=== PATIENT | male | born 1970 | race Caucasian/White ===

== ENCOUNTER 2018-01-22 19:22 | Emergency (ER) | payer OTHER ==
[~2018-01-22] VITALS: Ht 170.2 cm; Wt 123.4 kg
[~2018-01-22 19:22] MED LIST: IBUPROFEN 800800 M1 PO; IBUPROFEN 800800 MG PO; LOPERAMIDE 2 MG2 M1 PO; VICODIN HP 10-1 EAC1 PO
[2018-01-22 19:54] LABS: ABSOLUTE BASOPHILS 0.1 thou/uL (0.0-0.2); ABSOLUTE EOSINOPHILS 0.1 thou/uL (0.0-0.7); ABSOLUTE LYMPHOCYTES 1.7 thou/uL (0.8-5.3); ABSOLUTE MONOCYTES 1.1 thou/uL (0.0-1.2); ABSOLUTE NEUTROPHILS 6.2 thou/uL (1.6-8.1); BASOPHILS 1.1 %; EOSINOPHILS 1.2 %; HEMATOCRIT 48.3 % (42.0-52.0); HEMOGLOBIN 16.6 gm/dL (14.0-18.0); LYMPHOCYTES 18.3 %; MCH 29.4 pg (26.0-34.0); MCHC 34.3 g/dL (28.0-37.0); MCV 85.9 fL (80.0-100.0); MONOCYTES 12.2 %; MPV 7.9 fl. (7.2-11.1); NUCLEATED RBCS 0 /100WBC; PLATELET COUNT* 233 thou/uL (150-400); POLYS 67.2 %; RBC 5.62 mil/uL (4.50-6.00); WBC 9.3 thou/uL (4.0-11.0)
[2018-01-22 20:01] LABS: ANION GAP 14 mmol/L (7-16); BUN 27 mg/dL (7-18); CALCIUM 9.9 mg/dL (8.5-10.1); CHLORIDE 98 mmol/L (98-107); CO2 25 mmol/L (21-32); CREATININE 1.9 mg/dL (0.6-1.3); GLUCOSE 95 mg/dL (70-99); POTASSIUM 4.1 mmol/L (3.5-5.1); SODIUM 137 mmol/L (136-145)
[2018-01-22 20:08] LABS: ALBUMIN 4.4 g/dL (3.4-5.0); ALKALINE PHOSPHATASE 108 U/L (46-116); SGOT 39 U/L (15-37); SGPT 38 U/L (30-65); TOTAL BILIRUBIN 0.7 mg/dL (<0.1-1.0); TOTAL PROTEIN 8.5 g/dL (6.4-8.2); TROPONIN-I LEVEL <0.06 ng/mL (<0.06)
[2018-01-22 21:07] LABS: URINE BLOOD NEGATIVE (Negative); URINE CLARITY CLEAR; URINE COLOR YELLOW; URINE GLUCOSE-RANDOM NEGATIVE (Negative); URINE KETONES NEGATIVE (Negative); URINE LEUKOCYTES-REFLEX NEGATIVE (Negative); URINE NITRITE-REFLEX NEGATIVE (Negative); URINE PROTEIN 1+ (Negative); URINE SPECIFIC GRAVITY 1.025 (1.005-1.030); URINE UROBILINOGEN 0.2 E.U./dl (0.2-1.0)
[2018-01-22 21:14] LABS: URINE BILIRUBIN 1+ (Negative)
[2018-01-22 21:15] LABS: ICTOTEST (BILI CONFIRMATORY) Negative (Negative)
[2018-01-22] MEDS ORDERED: ROBAXIN 750 MG750 M1 PO (21:24)
[2018-01-22 22:08] VITALS: BP 119/73
--- NOTE | 2018-01-23 11:23 | EKG ---
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 : 1970 Requested By: Alison Cameron Order Number: [id number] MD: Trae Newell Measurements Intervals [place] Rate: 73 P: 17 MS: 152 QRS: -21 QRSD: 96 T: 13 QT: 380 QTc: 419 Interpretive Statements Sinus rhythm Borderline left axis deviation Abnormal R-wave progression, late transition No previous ECG available for comparison Electronically Signed On 01-23-2018 11:23:39 CDT by Trae Newell [email or web address] <ELECTRONICALLY SIGNED> By: Trae Newell MD, [facility] 01/23/18 1123 50 50 Trae Newell MD, FACC /EPI
== END 2018-01-22 22:09 | disposition home or self-care (01) ==
LOC: M.ERS 19:22
PROVIDERS: Nurse Practitioner Family
DX: T67.5XXA Heat exhaustion, unspecified, initial encounter (principal); E86.0 Dehydration; M79.1 Myalgia; X58.XXXA Exposure to other specified factors, initial encounter; M54.9 Dorsalgia, unspecified; G89.29 Other chronic pain; G47.30 Sleep apnea, unspecified; Z90.49 Acquired absence of other specified parts of digestive tract

== ENCOUNTER → 2019-03-07 | Outpatient (CLI) | payer OTHER ==
[~2019-03-07] MED LIST changes: +ROBAXIN 750 MG750 M1 PO
== END ==
LOC: M.PC 07:20
DX: M51.34 Other intervertebral disc degeneration, thoracic region (principal); M47.814 Spondylosis without myelopathy or radiculopathy, thoracic region; G89.29 Other chronic pain; G47.30 Sleep apnea, unspecified; Z90.49 Acquired absence of other specified parts of digestive tract; Z68.42 Body mass index [BMI] 45.0-49.9, adult

== ENCOUNTER → 2019-04-09 | Outpatient (CLI) | payer OTHER | END | disposition home or self-care (01) | LOC: M.PC 07:19 | DX: M54.9 Dorsalgia, unspecified (principal); M47.814 Spondylosis without myelopathy or radiculopathy, thoracic region; M51.14 Intervertebral disc disorders with radiculopathy, thoracic region; G89.29 Other chronic pain; Z90.49 Acquired absence of other specified parts of digestive tract; Z98.84 Bariatric surgery status; Z98.890 Other specified postprocedural states; Z79.899 Other long term (current) drug therapy ==

== ENCOUNTER → 2019-04-25 | Outpatient (CLI) | payer OTHER | END | disposition home or self-care (01) | LOC: M.PC 04-18 08:10 | DX: M47.814 Spondylosis without myelopathy or radiculopathy, thoracic region (principal); M51.34 Other intervertebral disc degeneration, thoracic region; G89.29 Other chronic pain; M54.9 Dorsalgia, unspecified; E66.09 Other obesity due to excess calories; Z98.84 Bariatric surgery status; Z79.891 Long term (current) use of opiate analgesic; Z90.49 Acquired absence of other specified parts of digestive tract; Z79.899 Other long term (current) drug therapy; Z98.890 Other specified postprocedural states; Z68.42 Body mass index [BMI] 45.0-49.9, adult ==

== ENCOUNTER 2019-05-18 14:59 | Emergency (ER) | payer OTHER ==
[~2019-05-18] VITALS: Ht 170.2 cm; Wt 129.3 kg
[2019-05-18] MEDS ORDERED: NORCO 10-325 T1 EAC1 PO (15:43)
[2019-05-18 15:57] VITALS: BP 136/91
== END 2019-05-18 15:59 | disposition home or self-care (01) ==
LOC: M.ERS 14:59
DX: G89.18 Other acute postprocedural pain (principal); M54.5 Low back pain; G89.29 Other chronic pain; G47.30 Sleep apnea, unspecified; Z90.49 Acquired absence of other specified parts of digestive tract

== ENCOUNTER → 2019-05-23 | Outpatient (CLI) | payer OTHER ==
[~2019-05-23] MED LIST changes: +NORCO 10-325 T1 EAC1 PO
== END ==
LOC: M.PC 05:29
DX: M51.14 Intervertebral disc disorders with radiculopathy, thoracic region (principal); M47.24 Other spondylosis with radiculopathy, thoracic region; Z79.899 Other long term (current) drug therapy

== ENCOUNTER → 2019-06-04 | Outpatient (CLI) | payer OTHER | LOC: M.PC 04:52 | DX: M51.14 Intervertebral disc disorders with radiculopathy, thoracic region (principal); M47.24 Other spondylosis with radiculopathy, thoracic region ==

== ENCOUNTER → 2019-06-27 | Outpatient (CLI) | payer OTHER | LOC: M.PC 06-25 08:00 | DX: M47.24 Other spondylosis with radiculopathy, thoracic region (principal); I45.4 Nonspecific intraventricular block; G89.4 Chronic pain syndrome; G47.30 Sleep apnea, unspecified; F11.90 Opioid use, unspecified, uncomplicated; Z90.49 Acquired absence of other specified parts of digestive tract ==

== ENCOUNTER → 2019-07-18 | Outpatient (CLI) | payer OTHER | LOC: M.PC 04:03 | DX: M47.24 Other spondylosis with radiculopathy, thoracic region (principal); M51.34 Other intervertebral disc degeneration, thoracic region ==

== ENCOUNTER → 2019-08-22 | Outpatient (CLI) | payer OTHER | LOC: M.PC 08:30 | DX: M51.14 Intervertebral disc disorders with radiculopathy, thoracic region (principal); M47.24 Other spondylosis with radiculopathy, thoracic region; Z79.899 Other long term (current) drug therapy; Z88.8 Allergy status to other drugs, medicaments and biological substances ==

== ENCOUNTER → 2019-09-19 | Outpatient (CLI) | payer OTHER | LOC: M.PC 02:27 | DX: M51.14 Intervertebral disc disorders with radiculopathy, thoracic region (principal); M47.24 Other spondylosis with radiculopathy, thoracic region ==

== ENCOUNTER → 2019-10-03 | Outpatient (CLI) | payer OTHER | END | disposition home or self-care (01) | LOC: M.PC 00:24 | DX: M54.9 Dorsalgia, unspecified (principal); M54.14 Radiculopathy, thoracic region; Z98.890 Other specified postprocedural states ==

== ENCOUNTER → 2019-10-17 | Outpatient (CLI) | payer OTHER | LOC: M.PC 08:00 | DX: M51.14 Intervertebral disc disorders with radiculopathy, thoracic region (principal); M47.24 Other spondylosis with radiculopathy, thoracic region ==

== ENCOUNTER → 2020-01-16 | Outpatient (CLI) | payer OTHER ==
[~2020-01-16] MED LIST changes: +DICLOFENAC PO; +MEDROLDOSEPACK PO; +TIZANIDINE HCL2 M1 PO
== END ==
LOC: M.PC 04:45 → M.RAD 04:45 → M.PC 08:20
DX: M51.16 Intervertebral disc disorders with radiculopathy, lumbar region (principal); M48.061 Spinal stenosis, lumbar region without neurogenic claudication; M51.04 Intervertebral disc disorders with myelopathy, thoracic region; M51.14 Intervertebral disc disorders with radiculopathy, thoracic region; M47.24 Other spondylosis with radiculopathy, thoracic region

== ENCOUNTER → 2020-03-05 | Outpatient (CLI) | payer OTHER | LOC: M.PC 05:23 | PROVIDERS: ATTEND Physical Medicine & Rehabilitation | DX: M51.16 Intervertebral disc disorders with radiculopathy, lumbar region (principal); M51.14 Intervertebral disc disorders with radiculopathy, thoracic region; M47.24 Other spondylosis with radiculopathy, thoracic region; Z79.899 Other long term (current) drug therapy ==

== ENCOUNTER → 2020-03-26 | Outpatient (CLI) | payer OTHER | LOC: M.PC 04:36 | PROVIDERS: ATTEND Physical Medicine & Rehabilitation | DX: M51.15 Intervertebral disc disorders with radiculopathy, thoracolumbar region (principal); M47.24 Other spondylosis with radiculopathy, thoracic region ==

== ENCOUNTER 2020-04-10 04:33 | Observation (INO) | payer OTHER ==
[~2020-04-10] VITALS: Ht 170.2 cm; Wt 127.0 kg
[2020-04-10 04:43] VITALS: BP 164/93
[2020-04-10 05:10] LABS: ABSOLUTE BASOPHILS 0.1 thou/uL (0.0-0.2); ABSOLUTE EOSINOPHILS 0.4 thou/uL (0.0-0.7); ABSOLUTE LYMPHOCYTES 2.8 thou/uL (0.8-5.3); ABSOLUTE MONOCYTES 0.8 thou/uL (0.0-1.2); ABSOLUTE NEUTROPHILS 5.6 thou/uL (1.6-8.1); BASOPHILS 1.1 %; EOSINOPHILS 3.8 %; HEMATOCRIT 44.6 % (42.0-52.0); HEMOGLOBIN 15.9 gm/dL (14.0-18.0); MCH 31.2 pg (26.0-34.0); MCHC 35.7 g/dL (28.0-37.0); MCV 87.3 fL (80.0-100.0); MONOCYTES 8.1 %; NUCLEATED RBCS 0 /100WBC; PLATELET COUNT* 192 thou/uL (150-400); RBC 5.11 mil/uL (4.50-6.00); RDW-CV 13.7 % (10.5-14.5); WBC 9.6 thou/uL (4.0-11.0)
[2020-04-10 05:32] LABS: CALCIUM 8.7 mg/dL (8.5-10.1); CREATININE 0.9 mg/dL (0.6-1.3); POTASSIUM 4.4 mmol/L (3.5-5.1)
[2020-04-10 06:18] LABS: TOTAL BILIRUBIN 0.6 mg/dL (<0.1-1.0); TOTAL PROTEIN 7.4 g/dL (6.4-8.2)
[2020-04-10 06:19] LABS: ALBUMIN 3.9 g/dL (3.4-5.0)
[2020-04-10 08:07] LABS: CHOLESTEROL 215 mg/dL (<200); HDL CHOLESTEROL 31 mg/dL (>40); TC:HDL 6.9 Ratio (Not establshd); TRIGLYCERIDE 576 mg/dL (<150); VLDL 115 mg/dL (<40)
[2020-04-10 08:08] LABS: SERUM ASSESSMENT Clear
[2020-04-10 09:46] VITALS: BP 126/77
--- NOTE | 2020-04-10 12:48 | CON ---
[address] [address] CONSULTATION Name: JEFF SCHILLING Room: [address] M.R.#: [id number] Admission: 04/10/20 Attend Phys: Tereso Zamarripa MD Discharge: Date of : 66 Report #: [id number] THIS REPORT FOR: //name// cc: Mary Banks MD, Ghazal A. MD ~ THIS REPORT FOR: //name// CC: Tereso Banks MD DATE OF SERVICE: 04/10/2020 INDICATION: Chest pain. HISTORY OF PRESENT ILLNESS: The patient is a very pleasant 49-year-old gentleman with no prior cardiac history. Cardiac risk factor includes hypertension. He denies dyslipidemia, diabetes, family history of coronary artery disease or tobacco use. The patient has had previous back surgery in the thoracic spine. Pain with that usually radiated from the back around both the right and left side. The patient has been having pain in the left scapular area for the last couple of days and then had pain yesterday in the left anterior chest. The pain would wax and wane and was worse with movement. He denied any nausea, vomiting or diaphoresis. He denies shortness of breath. He is without other cardiac complaint at this time. A 12-lead EKG in the Emergency Room showed normal sinus rhythm with no significant ST or T-wave abnormalities. Initial troponin is unremarkable. PAST MEDICAL HISTORY: 1. Hypertension. 2. Obesity. 3. Chronic back pain with previous thoracic spine surgery. 4. Gastric sleeve. 5. Sleep apnea. 6. Previous sinus surgery. 7. Cholecystectomy. 8. Tonsillectomy and adenoidectomy. HOME MEDICATIONS: [place] 10/325 every 6 hours p.r.n. ALLERGIES: None documented. SOCIAL HISTORY: The patient denies use of tobacco or alcohol. REVIEW OF SYSTEMS: A 14-point review of systems as per HPI, [place] [address] CONSULTATION Name: JEFF SCHILLING Room: [address] [place]#: [id number] Admission: 04/10/20 Attend Phys: Tereso Zamarripa MD Discharge: Date of : 66 Report #: [id number] PHYSICAL EXAMINATION: VITAL SIGNS: Blood pressure 164/93, pulse is 69 and regular. GENERAL: This is a moderately obese, pleasant male, in no distress. Mood and affect appropriate. HEENT: Extraocular muscles are intact. Mucous membranes are moist. NECK: Shows no jugular venous distention. There are no carotid bruits. CHEST: Reveals clear lung cleaning without wheezes, rales or rhonchi. CARDIOVASCULAR: Reveals a regular rhythm with normal S1 and S2. I do not appreciate gallop or murmur. ABDOMEN: Reveals a protuberant abdomen, soft, and nontender. Bowel sounds present. EXTREMITIES: Shows no edema. Peripheral pulses are 2+. SKIN: Dry. LABORATORY DATA: Reviewed. Troponin is less than 0.06 on 2 separate occasions. NT-proBNP is 9. Cholesterol was 215 with the triglycerides of 576, HDL 31, LDL could not be calculated. CBC was within normal limits. Electrolytes within normal limits. BUN 14, creatinine 0.9, serum glucose 101. Chest x-ray showed no acute process. IMPRESSION AND RECOMMENDATIONS: 1. Chest pain with risk factors for coronary artery disease including hypertriglyceridemia and hypertension. At this point, I have ordered a noninvasive stress testing to further evaluate. Further intervention will be pending the results of that study. I have also ordered an echocardiogram. 2. Hypertriglyceridemia. We would recommend a course of diet and exercise with followup fasting lipid profile. <ELECTRONICALLY SIGNED> By: Alex Moscoso MD, FACC 04/10/20 1248 0900 [id number] Campusmariann Moscoso MD, FACC /nt
[2020-04-10 14:01] VITALS: BP 113/74
--- NOTE | 2020-04-10 14:27 | CARDNUC ---
[place] [address] CARDIAC NUCLEAR IMAGING REPORT Name: JEFF SCHILLING Room: [address]#: [id number] Admission: 04/10/20 Attend Phys: Tereso Zamarripa, Discharge: Date of : 66 Date of Service: 04/10/20 1427 Report #: [id number] THIS REPORT FOR: cc: Mary Banks MD, Ghazal A. MD [place]on, Michael J. MD [facility] ~ APPROVED REPORT Imaging Protocol: Stress Tc-99mm Only Study performed: 04/10/2020 08:56:00 Indication: Chest pain Patient Location: In-Patient Room #: 170 Stress Tech: Dorina Carmona Stress Nurse: Ayleen Marie RN NM Tech:SHIRLEY Stark Ht: 5 ft 7 in Wt: 280 lbs BSA: 2.33 m2 BMI: 43.84 Medical History Medical History: HTN, Obesity Medications: ntg, asa-324, losartan Allergies: No known drug allergies Cardiac Risk Factors: Age, HTN Exercise History: Sedentary Pharmacologic Stress Pharmacologic stress test was performed by injecting Regadenoson 0.4 mg IV push over 10-15 seconds immediately followed by the intravenous injection of 34.0 mCi of Tc-99m Sestamibi. Time of stress injection: 1210 Date: 04/10/2020 Administration Route: IV Administration Site: Right AC Gated Stress SPECT was performed 40 minutes after stress injection. The images were gated to evaluate regional wall motion and calculate left ventricular ejection fraction. Prone imaging was performed. Stress Test Details Stress Test: Pharmacologic stress testing performed using 0.4 mg of regadenoson per 5 mL given IV [place] [address] CARDIAC NUCLEAR IMAGING REPORT Name: JEFF SCHILLING Room: [address] M.R.#: [id number] Admission: 04/10/20 Attend Phys: Tereso Zamarripa, Discharge: Date of : 66 Date of Service: 04/10/20 1427 Report #: [id number] HR Max Heart Rate (APMHR): 169 bpm Resting HR: 66 bpm Target HR (85% APMHR): 143 bpm Max HR Achieved: 88 bpm % of APMHR: 52 Recovery HR: 81 bpm BP Resting BP: 106/60 mmHg Max BP: 129/71 mmHg Recovery BP: 129/71 mmHg ECG Resting ECG: Sinus Rhythm Stress ECG: Sinus Rhythm ST Change: None Arrhythmia: None Recovery ECG: Sinus Rhythm Recovery ST Change: None Recovery Arrhythmia: None Clinical Reason for Termination: Completed protocol The patient tolerated Lexiscan infusion without significant cardiac symptoms. Stress ECG Conclusion The baseline twelve-lead EKG shows sinus rhythm without significant ST segment or T wave abnormality. EKGs obtained during and post Lexiscan infusion show sinus rhythm with no significant ST segment or T wave changes when compared to baseline. There were no stress-induced arrhythmias. Study Quality Study: Good Artifact: No artifact Study Data Post stress, the left ventricular ejection was 70%.. Perfusion Perfusion images obtained post Lexiscan stress showed uniform uptake of the radioisotope throughout the myocardium. There were no defects to suggest infarct [place] [address] CARDIAC NUCLEAR IMAGING REPORT Name: JEFF SCHILLING Room: [address]#: [id number] Admission: 04/10/20 Attend Phys: Tereso Zamarripa, Discharge: Date of : 66 Date of Service: 04/10/20 1427 Report #: [id number] Normal left ventricular wall motion. Nuclear Conclusion ECG Findings: negative for ischemia Clinical Findings: negative for ischemia Nuclear Findings: negative for ischemia Exercise Capacity: not assessed Left Ventricular Function: normal Risk Study: low Perfusion study show no defect to suggest infarct or ischemia. Left ventricular systolic function appears normal on gated studies. This is a low risk study. <Conclusion> The baseline twelve-lead EKG shows sinus rhythm without significant ST segment or T wave abnormality. EKGs obtained during and post Lexiscan infusion show sinus rhythm with no significant ST segment or T wave changes when compared to baseline. There were no stress-induced arrhythmias. <ELECTRONICALLY SIGNED> By: Alex Moscoso MD, FACC 04/10/20 1427 26 142 Alex Moscoso MD, FACC /INF
--- NOTE | 2020-04-10 14:33 | EKG ---
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
--- NOTE | 2020-04-10 15:05 | 2DMMODE ---
[place] [address] 2 D/M-MODE ECHOCARDIOGRAM Name: JEFF SCHILLING Room: [address] M.R.#: [id number] Admission: 04/10/20 Attend Phys: Tereso Zamarripa, Discharge: Date of : 66 Date of Service: 04/10/20 1505 Report #: [id number] THIS REPORT FOR: cc: Mary Banks MD, Ghazal A. MD Liston, Michael J. MD [facility] ~ APPROVED REPORT Study performed: 04/10/2020 12:01:26 EXAM: Comprehensive 2D, Doppler, and color-flow Echocardiogram Patient Location: In-Patient Status: routine BSA: 2.33 HR: 68 bpm BP: 111/61 mmHg Rhythm: NSR Other Information Study Quality: Good Indications Chest Pain 2D Dimensions IVSd: 13.86 (7-11mm) LVOT Diam: 21.09 (18-24mm) LVDd: 53.80 mm PWd: 12.37 (7-11mm) Ascending Ao: 32.69 (22-36mm) LVDs: 26.53 (25-40mm) Aortic Root: 38.21 mm Volumes Left Atrial Volume (Systole) LA ESV Index: 19.60 mL/m2 Aortic Valve AoV Peak Tevin.: 1.40 m/s AO Peak Gr.: 7.81 mmHg LVOT Max P.24 mmHg AO Mean Gr.: 4.49 mmHg LVOT Mean P.20 mmHg LVOT Max V: 1.25 m/s AO V2 VTI: 28.25 cm LVOT Mean V: 0.83 m/s FÉLIX (VTI): 3.17 cm2 LVOT V1 VTI: 25.60 [place] [address] 2 D/M-MODE ECHOCARDIOGRAM Name: JEFF SCHILLING Room: [address]#: [id number] Admission: 04/10/20 Attend Phys: Tereso Zamarripa, Discharge: Date of : 66 Date of Service: 04/10/20 1505 Report #: [id number] Mitral Valve E/A Ratio: 1.24 MV Decel. Time: 186.47 ms MV E Max Tevin.: 0.85 m/s MV PHT: 54.08 ms MVA (PHT): 4.07 cm2 TDI E/Lateral E': 12.14 E/Medial E': 10.63 Medial E' Tevin.: 0.08 m/s Lateral E' Tevin.: 0.07 m/s Pulmonary Valve PV Peak Tevin.: 0.97 m/s PV Peak Gr.: 3.78 mmHg Tricuspid Valve RAP Estimate: 5.00 mmHg TR Peak Gr.: 23.90 mmHg RVSP: 28.00 mmHg PA Pressure: 28.00 mmHg Left Ventricle The left ventricle is normal size. There is normal LV segmental wall motion. Mild concentric left ventricular hypertrophy. Left ventricular systolic function is normal. LVEF is 55-60%. Transmitral Doppler flow pattern suggests impaired LV relaxation. Right Ventricle The right ventricle is normal size. The right ventricular systolic function is normal. Atria Left atrium is mildly dilated. The right atrium size is normal. Aortic Valve The aortic valve is normal in structure. No aortic regurgitation is present. There is no aortic valvular stenosis. Mitral Valve The mitral valve is normal in structure. Trace mitral regurgitation. No evidence of mitral valve stenosis. Tricuspid Valve The tricuspid valve is normal in structure. Trace tricuspid regurgitation. [place] [address] 2 D/M-MODE ECHOCARDIOGRAM Name: JEFF SCHILLING Room: [address]#: [id number] Admission: 04/10/20 Attend Phys: Tereso Zamarripa, Discharge: Date of : 66 Date of Service: 04/10/20 1505 Report #: [id number] Pulmonic Valve The pulmonary valve is normal in structure. Trace pulmonic regurgitation. Great Vessels The aortic root is normal in size. IVC is normal in size and collapses >50% with inspiration. Pericardium There is no pericardial effusion. <Conclusion> The left ventricle is normal size. Mild concentric left ventricular hypertrophy. Left ventricular systolic function is normal. LVEF is 55-60%. Transmitral Doppler flow pattern suggests impaired LV relaxation. There is normal LV segmental wall motion. Left atrium is mildly dilated. Trace tricuspid regurgitation. No pulmonary hypertension. IVC is normal in size and collapses >50% with inspiration. <ELECTRONICALLY SIGNED> By: Alex Moscoso MD, FACC 04/10/20 1505 1505 1505 Alex Moscoso MD, FACC /INF
[2020-04-10 15:16] VITALS: BP 113/74
[2020-04-10] MEDS ORDERED: LIPITOR 40 MG T40 M1 PO (15:16)
[2020-04-10] MEDS ORDERED: COZAAR 50 MG TA50 M1 PO (15:16)
[2020-04-10] MEDS ORDERED: ASA81BEC PO (15:19)
[2020-04-10 15:36] VITALS: BP 113/74
[2020-04-10 15:44] VITALS: BP 113/74
== END 2020-04-10 16:00 | disposition left against medical advice (07) ==
LOC: M.ERS 04:33 → M.TBA-ER 06:30
PROVIDERS: Internal Medicine; Personal Emergency Response Attendant; ADMIT Internal Medicine; ATTEND Internal Medicine
DX: R07.89 Other chest pain (principal); I10 Essential (primary) hypertension; E78.5 Hyperlipidemia, unspecified; G47.30 Sleep apnea, unspecified; E66.01 Morbid (severe) obesity due to excess calories; M54.9 Dorsalgia, unspecified; G89.29 Other chronic pain; Z98.84 Bariatric surgery status; Z68.41 Body mass index [BMI] 40.0-44.9, adult; Z79.899 Other long term (current) drug therapy; Z20.828 Contact with and (suspected) exposure to other viral communicable diseases

== ENCOUNTER → 2020-04-23 | Outpatient (CLI) | payer OTHER ==
[~2020-04-23] MED LIST changes: +ASA81BEC PO; +COZAAR 50 MG TA50 M1 PO; +LIPITOR 40 MG T40 M1 PO; +MICARDIS 20MG T20 M1 PO
== END ==
LOC: M.PC 07:30
PROVIDERS: ATTEND Physical Medicine & Rehabilitation
DX: M51.15 Intervertebral disc disorders with radiculopathy, thoracolumbar region (principal); M47.24 Other spondylosis with radiculopathy, thoracic region

== ENCOUNTER → 2020-05-21 | Outpatient (CLI) | payer OTHER | LOC: M.PC 08:00 | PROVIDERS: ATTEND Physical Medicine & Rehabilitation | DX: M47.24 Other spondylosis with radiculopathy, thoracic region (principal); M51.14 Intervertebral disc disorders with radiculopathy, thoracic region; M51.16 Intervertebral disc disorders with radiculopathy, lumbar region; Z79.899 Other long term (current) drug therapy ==

== ENCOUNTER → 2020-06-18 | Outpatient (CLI) | payer OTHER | LOC: M.PC 08:00 | PROVIDERS: ATTEND Physical Medicine & Rehabilitation | DX: M51.16 Intervertebral disc disorders with radiculopathy, lumbar region (principal); M51.04 Intervertebral disc disorders with myelopathy, thoracic region; M51.14 Intervertebral disc disorders with radiculopathy, thoracic region ==

== ENCOUNTER → 2020-07-16 | Outpatient (CLI) | payer OTHER | LOC: M.PC 08:00 | PROVIDERS: ATTEND Physical Medicine & Rehabilitation | DX: M51.14 Intervertebral disc disorders with radiculopathy, thoracic region (principal); M47.24 Other spondylosis with radiculopathy, thoracic region; M51.16 Intervertebral disc disorders with radiculopathy, lumbar region; M79.605 Pain in left leg ==

== ENCOUNTER → 2020-08-13 | Outpatient (CLI) | payer OTHER | LOC: M.PC 08:00 | PROVIDERS: ATTEND Physical Medicine & Rehabilitation | DX: M51.16 Intervertebral disc disorders with radiculopathy, lumbar region (principal); M79.605 Pain in left leg; Z88.8 Allergy status to other drugs, medicaments and biological substances; Z79.899 Other long term (current) drug therapy ==

== ENCOUNTER → 2020-09-10 | Outpatient (CLI) | payer OTHER ==
[~2020-09-10] MED LIST changes: +NORCO 10-325 T1 EACH PO
== END ==
LOC: M.PC 08:00
PROVIDERS: ATTEND Physical Medicine & Rehabilitation
DX: M51.16 Intervertebral disc disorders with radiculopathy, lumbar region (principal); M47.24 Other spondylosis with radiculopathy, thoracic region; M51.14 Intervertebral disc disorders with radiculopathy, thoracic region

== ENCOUNTER → 2020-10-08 | Outpatient (CLI) | payer OTHER | LOC: M.PC 07:49 | PROVIDERS: ATTEND Physical Medicine & Rehabilitation | DX: M51.16 Intervertebral disc disorders with radiculopathy, lumbar region (principal) ==

== ENCOUNTER → 2020-11-05 | Outpatient (CLI) | payer OTHER ==
[~2020-11-05] MED LIST changes: +HYDROCODON-ACE1 EAC7 PO
== END ==
LOC: M.PC 08:00
PROVIDERS: ATTEND Physical Medicine & Rehabilitation
DX: M51.16 Intervertebral disc disorders with radiculopathy, lumbar region (principal); M51.14 Intervertebral disc disorders with radiculopathy, thoracic region; M47.24 Other spondylosis with radiculopathy, thoracic region

== ENCOUNTER → 2020-12-03 | Outpatient (CLI) | payer OTHER | LOC: M.PC 08:00 | PROVIDERS: ATTEND Physical Medicine & Rehabilitation | DX: M51.16 Intervertebral disc disorders with radiculopathy, lumbar region (principal); M51.14 Intervertebral disc disorders with radiculopathy, thoracic region; M48.04 Spinal stenosis, thoracic region ==

== ENCOUNTER → 2020-12-31 | Outpatient (CLI) | payer OTHER | LOC: M.PC 09:06 | PROVIDERS: ATTEND Physical Medicine & Rehabilitation | DX: M51.16 Intervertebral disc disorders with radiculopathy, lumbar region (principal); M47.24 Other spondylosis with radiculopathy, thoracic region; M51.14 Intervertebral disc disorders with radiculopathy, thoracic region; Z98.890 Other specified postprocedural states ==

== ENCOUNTER → 2021-01-26 | Outpatient (CLI) | payer OTHER | LOC: M.PC 09:06 | PROVIDERS: ATTEND Physical Medicine & Rehabilitation | DX: M47.816 Spondylosis without myelopathy or radiculopathy, lumbar region (principal); M51.16 Intervertebral disc disorders with radiculopathy, lumbar region; E66.01 Morbid (severe) obesity due to excess calories; Z79.891 Long term (current) use of opiate analgesic; Z79.899 Other long term (current) drug therapy ==

== ENCOUNTER 2021-02-07 17:07 | Emergency (ER) | payer OTHER ==
[~2021-02-07] VITALS: Ht 170.2 cm; Wt 129.3 kg
[2021-02-07] MEDS ORDERED: COZAAR 25 MG TA25 M2 PO (17:15)
[2021-02-07] MEDS ORDERED: MEDROLDOSEPACK PO (17:43)
[2021-02-07 18:09] VITALS: BP 147/107
--- NOTE | 2021-02-09 10:21 | EKG ---
[place] [address] ELECTROCARDIOGRAM REPORT Name: JEFF SCHILLING Room: [facility]#: [id number] Admission: 02/07/21 Attend Phys: Discharge: 02/07/21 Date of : 66 Date of Service: 02/07/21 1718 Report #: [id number] THIS REPORT FOR: //name// [facility] ED Test Date: 2021-02-07 Test Time: 17:18:55 Pat Name: JEFF SCHILLING Department: Room: Gender: Activity Aid: JESSICA : 1970 Requested By: Jason Giles Order Number: [id number] Carlos Eduardo MD: Trae Newell Measurements Intervals [place] Rate: 67 P: 2 WI: 130 QRS: -6 QRSD: 94 T: 36 QT: 406 QTc: 429 Interpretive Statements Sinus rhythm Compared to ECG 04/10/2020 04:38:00 No significant changes Electronically Signed On 02-09-2021 10:21:22 CDT by Trae Newell [email or web address] <ELECTRONICALLY SIGNED> By: Trae Newell MD, [facility] 02/09/21 1021 17 17 Trae Newell MD, [facility] /EPI
== END 2021-02-07 18:09 | disposition home or self-care (01) ==
LOC: M.ERS 17:07
DX: M54.12 Radiculopathy, cervical region (principal); I10 Essential (primary) hypertension; G47.30 Sleep apnea, unspecified; E66.01 Morbid (severe) obesity due to excess calories; Z68.41 Body mass index [BMI] 40.0-44.9, adult; Z90.49 Acquired absence of other specified parts of digestive tract

== ENCOUNTER → 2021-03-23 | Outpatient (CLI) | payer OTHER ==
[~2021-03-23] MED LIST changes: +COZAAR 25 MG TA25 M2 PO
== END ==
LOC: M.PC 08:57
PROVIDERS: ATTEND Physical Medicine & Rehabilitation
DX: G89.29 Other chronic pain (principal); M47.24 Other spondylosis with radiculopathy, thoracic region; M51.14 Intervertebral disc disorders with radiculopathy, thoracic region; Z98.890 Other specified postprocedural states; Z79.891 Long term (current) use of opiate analgesic; Z79.899 Other long term (current) drug therapy

== ENCOUNTER → 2021-04-15 | Outpatient (CLI) | payer OTHER | LOC: M.PC 09:40 | PROVIDERS: ATTEND Physical Medicine & Rehabilitation | DX: M51.16 Intervertebral disc disorders with radiculopathy, lumbar region (principal); M51.14 Intervertebral disc disorders with radiculopathy, thoracic region; M47.24 Other spondylosis with radiculopathy, thoracic region ==

== ENCOUNTER → 2021-05-13 | Outpatient (CLI) | payer OTHER | LOC: M.PC 08:54 | PROVIDERS: ATTEND Physical Medicine & Rehabilitation | DX: M51.16 Intervertebral disc disorders with radiculopathy, lumbar region (principal); M51.14 Intervertebral disc disorders with radiculopathy, thoracic region; M47.24 Other spondylosis with radiculopathy, thoracic region; Z90.49 Acquired absence of other specified parts of digestive tract ==

== ENCOUNTER → 2021-06-10 | Outpatient (CLI) | payer OTHER | LOC: M.PC 08:57 | PROVIDERS: ATTEND Physical Medicine & Rehabilitation | DX: M51.16 Intervertebral disc disorders with radiculopathy, lumbar region (principal); M51.14 Intervertebral disc disorders with radiculopathy, thoracic region; M47.24 Other spondylosis with radiculopathy, thoracic region; Z90.49 Acquired absence of other specified parts of digestive tract ==

== ENCOUNTER → 2021-07-08 | Outpatient (CLI) | payer OTHER | LOC: M.PC 08:53 | PROVIDERS: ATTEND Physical Medicine & Rehabilitation | DX: M51.16 Intervertebral disc disorders with radiculopathy, lumbar region (principal); M51.14 Intervertebral disc disorders with radiculopathy, thoracic region; M47.24 Other spondylosis with radiculopathy, thoracic region ==

== ENCOUNTER → 2021-08-03 | Outpatient (CLI) | payer OTHER | LOC: M.PC 09:09 | PROVIDERS: ATTEND Physical Medicine & Rehabilitation | DX: M51.16 Intervertebral disc disorders with radiculopathy, lumbar region (principal); M47.24 Other spondylosis with radiculopathy, thoracic region; M51.14 Intervertebral disc disorders with radiculopathy, thoracic region; M79.605 Pain in left leg ==

== ENCOUNTER → 2021-08-31 | Outpatient (CLI) | payer OTHER | LOC: M.PC 09:00 | PROVIDERS: ATTEND Physical Medicine & Rehabilitation | DX: M51.16 Intervertebral disc disorders with radiculopathy, lumbar region (principal); M51.14 Intervertebral disc disorders with radiculopathy, thoracic region ==

== ENCOUNTER → 2021-09-28 | Outpatient (CLI) | payer OTHER | LOC: M.PC 09:10 | PROVIDERS: ATTEND Physical Medicine & Rehabilitation | DX: M51.16 Intervertebral disc disorders with radiculopathy, lumbar region (principal); M51.14 Intervertebral disc disorders with radiculopathy, thoracic region; M47.24 Other spondylosis with radiculopathy, thoracic region ==